=== PATIENT | female | born 1995 | race Caucasian/White ===

== ENCOUNTER 2018-02-01 10:49 | Emergency (ER) | payer BC ==
[2018-02-01 12:29] VITALS: BP 137/93
--- NOTE | 2018-02-01 13:30 | UC ---
Skin Complaint HPI - HPI Summary HPI Summary: PATIENT WITH A KNOWN HISTORY OF ECZEMA THAT RESPONDS WELL TO TOPICAL STEROIDS STATES SHE HAS HAD A FLARE OVER THE PAST FEW WEEKS. HAS ITCHY EXCORIATED RASH ON BILATERAL LOWER EXTREMITIES. RAN OUT OF STEROID CREAM. SHE ALSO REPORTS SHE HAS BEEN CONCERNED ABOUT HER BLOOD PRESSURE SO SHE STARTED AN [id number] WATER PILL A COUPLE OF DAYS AGO. YESTERDAY SHE DEVELOPED SOME UPPER LIP SWELLING AND HIVES DIFFUSELY. SHE TOOK 50 MG OF BENADRYL AND THE LIP SWELLING RESOLVED. HIVES ARE ALSO MUCH IMPROVED. SHE DENIES ANY RESPIRATORY COMPROMISE. JUST MOVED TO THE AREA. NO PCP YET. - History of Current Complaint Chief Complaint: UCSkin Time Seen by Provider: 02/01/18 13:15 Stated Complaint: SKIN COMPLAINT Hx Obtained From: Patient Hx Last Menstrual Period: 01/07/18 Onset/Duration: Gradual Onset, Lasting Weeks, Still Present Timing: Constant Onset Severity: Moderate Current Severity: Moderate Pain Intensity: 0 Pain Scale Used: 0-10 Numeric Character: Hives Aggravating Factor(s): Touch Alleviating Factor(s): Other - TOPICAL STEROIDS Associated Signs & Symptoms: Positive: Rash Related History: Recent change in medication - Allergy/Home Medications Allergies/Adverse Reactions: Allergies Allergy/AdvReac Type Severity Reaction Status Date / Time No Known Allergies Allergy Verified 02/01/18 12:29 Review of Systems Constitutional: Negative Skin: Rash Respiratory: Negative Cardiovascular: Negative Gastrointestinal: Negative All Other Systems Reviewed And Are Negative: Yes PMH/Surg Hx/FS Hx/Imm Hx - Additional Past Medical History Additional PMH: ECZEMA Cardiovascular History: Hypertension - Surgical History Surgical History: None - Social History Alcohol Use: Rare Substance Use Type: None Smoking Status (MU): Never Smoked Tobacco Physical Exam Triage Information Reviewed: Yes Appearance: Well-Appearing, No Pain Distress, Well-Nourished Vital Signs: Initial Vital Signs Temp 98.7 F 02/01/18 12:24 Pulse 78 02/01/18 12:24 Resp 18 02/01/18 12:24 BP 137/93 02/01/18 12:24 Pulse Ox 99 02/01/18 12:24 Vital Signs Reviewed: Yes Eyes: Positive: Conjunctiva Clear ENT: Positive: Hearing grossly normal Neck: Positive: Supple Respiratory: Positive: No respiratory distress, No accessory muscle use Cardiovascular: Positive: Pulses Normal Abdomen Description: Positive: Soft Musculoskeletal: Positive: No Edema Neurological: Positive: Alert Psychological: Positive: Age Appropriate Behavior Skin: Positive: rashes - HYPERPIGMENTED SKIN WITH EXCORIATED FLAKY AREAS OF INFLAMMATION ON INNER AND POSTERIOR THIGHS AND CALVES. Course/Dx - Diagnoses Provider Diagnoses: ECZEMA Discharge - Sign-Out/Discharge Documenting (check all that apply): Patient Departure All imaging exams completed and their final reports reviewed: No Studies - Discharge Plan Condition: Stable Disposition: HOME Prescriptions: predniSONE TAB* [Deltasone 20 MG TAB*] 40 mg PO DAILY #10 tab Triamcinolone 0.1% CREAM(NF) [Kenalog Cream 0.1%(NF)] 1 applic TOPICAL BID PRN # [id number] g PRN Reason: Itching Patient Education Materials: Eczema (ED), General Allergic Reaction (ED) Referrals: No Primary Care Phys,NOPCP [Primary Care Provider] - Additional Instructions: USE THE TOPICAL STEROIDS ON THE AFFECTED AREA TWICE DAILY. TAKE THE ORAL PREDNISONE DAILY FOR 5 DAYS. I WOULD ALSO RECOMMEND YOU TAKE AN OVER-THE- COUNTER ANTIHISTAMINE DAILY (CLARITIN (LORATADINE), ZYRTEC (CETIRIZINE) OR BECYK (FEXOFENADINE)) IN THE MORNING. KEEP COOL CLEAN AND DRY. SEEK FOLLOW- UP IF YOU'RE NOT IMPROVING EXPECTED. DERMATOLOGY [place] ANATOLIY TRENT [facility], [facility] [address] [facility]; [address] [place] [address] Dr. Becca Newmanister Address: [address] [place] [address] [address] [place] [address] [facility] [address] [place] [address] D[address] IN [place] Dr[address] Margarita Bernard DERMATOLOGY IN [place] DR. BRAD LEI [phone] CALL THE NUMBER BELOW FOR ASSISTANCE IN ESTABLISHING WITH A PCP An additional resource available to assist in finding the appropriate physician for your health care needs is the [facility] ([facility]). You may contact them by calling [phone]. - Billing Disposition and Condition Condition: STABLE Disposition: Home
== END 2018-02-01 13:40 | disposition home or self-care (01) ==
LOC: UCCORT 10:49
DX: L30.9 Dermatitis, unspecified (principal)
CPT/HCPCS: 99202; G0463